=== PATIENT | male | born 1955 | race Caucasian/White ===

== ENCOUNTER 2022-08-29 11:00 | Outpatient (CLI) | payer MEDICARE, SELFPAY ==
--- NOTE | 2022-08-29 11:30 | ECG_ITS ---
Measurements Intervals [place] Rate: 59 P: 67 DE: 173 QRS: 48 QRSD: 89 T: 53 QT: 411 QTc: 407 Interpretive Statements SINUS BRADYCARDIA VENTRICULAR PREMATURE COMPLEX EARLY PRECORDIAL R/S TRANSITION BORDERLINE ECG NO PREVIOUS ECG AVAILABLE FOR COMPARISON Electronically Signed On 08-29-2022 11:48:29 PACKAGING MATERIALS INSPECTOR by Pio Smith D.O.
[2022-08-29 11:36] LABS: Add Urine Microscopic? NO; Appearance Urine Clear (Clear); Bilirubin Urine Negative (Negative); Blood Urine Negative (Negative); Color Urine Yellow (Yellow); Glucose Urine UA Negative (Negative); Ketones Urine Negative (Negative); Leukocyte Esterase Ur Negative LEU/UL (Negative); Nitrate Urine Negative (Negative); Protein Urine Negative (Negative); Urobilinogen Urine 0.2 mg/dL (<2.0); pH Urine 7.5 (5.0-9.0)
[2022-08-29 11:36] LABS: Alanine Aminotransferase 28 U/L (6-50); Albumin Level 4.4 g/dL (3.5-5.1); Alkaline Phosphatase 98 U/L (38-126); Anion Gap 9 mmol/L (8-16); Aspartate Amino Transferase 23 U/L (17-59); Blood Urea Nitrogen 15 mg/dL (9-20); Calcium 8.7 mg/dL (8.4-10.2); Carbon Dioxide 26 mmol/L (22-30); Chloride 104 mmol/L (98-107); Estimated Glomerular Filt Rate > 60; Glucose 104 mg/dL (65-110); Sodium 139 mmol/L (137-145)
[2022-08-29 11:38] LABS: Basophils Absolute Auto 0.1 K/mm3 (0.0-0.1); Basophils Percent Auto 0.8 % (0.2-1.2); Eosinophils Absolute Auto 0.1 K/mm3 (0-0.3); Eosinophils Percent Auto 0.9 % (0-4.4); Hematocrit 45.3 % (42.0-52.0); Hemoglobin 14.7 g/dL (14.0-18.0); Immature Granulocyte Absolute 0.02 K/mm3 (0.00-0.031); Immature Granulocyte Percent A 0.3 % (0-0.5); Lymphocytes Absolute Auto 1.52 K/mm3 (0.9-3.2); Lymphocytes Percent Auto 23.5 % (18.3-44.2); Mean Corpuscular HGB Conc 32.5 g/dl (32-36); Mean Corpuscular Hemoglobin 30.6 pg (26-34); Mean Corpuscular Volume 94.4 fl (80-100); Mean Platelet Volume 9.7 fl (7.4-10.4); Monocytes Absolute Auto 0.5 K/mm3 (0.1-0.6); Monocytes Percent Auto 8.3 % (2.6-8.5); Neutrophils Absolute Auto 4.3 K/mm3 (1.3-6.7); Neutrophils Percent Auto 66.2 % (45.5-73.1); Platelet Count Result 232 k/mm3 (150-375); Red Cell Distribution Width 14.1 % (11.5-14.5); White Blood Count 6.5 K/mm3 (4.5-10.0)
[2022-08-29 12:10] LABS: Prothrombin Time 12.4 Seconds (11.1-14.7)
[2022-08-29 12:11] LABS: Partial Thromboplastin Time 26.2 SECONDS (22.3-36.8)
== END 2022-08-29 11:01 | disposition home or self-care (01) ==
PROVIDERS: Visit Provider Neurological Surgery
DX: Z01.818 Encounter for other preprocedural examination (principal); M47.812 Spondylosis without myelopathy or radiculopathy, cervical region; R00.1 Bradycardia, unspecified
CPT/HCPCS: 36415; 80053; 81003; 85025; 85610; 85730; 86850; 86900; 86901; 93005

== ENCOUNTER 2022-10-30 09:23 | Outpatient (CLI) | payer MEDICARE, SELFPAY | END 2022-10-30 09:24 | disposition home or self-care (01) | PROVIDERS: Visit Provider Neurological Surgery | DX: Z01.818 Encounter for other preprocedural examination (principal) | CPT/HCPCS: 36415; 86850; 86900; 86901 ==

== ENCOUNTER 2022-11-08 00:45 | Day surgery (SDC) | payer MEDICARE, SELFPAY ==
[2022-08-31 09:35] VITALS: BMI 39.5
--- NOTE | 2022-08-31 10:00 | PC.NURSE ---
Report to the Outpatient Waiting Room, entrance under the green pavilion located off [facility], at time __6:30AM on date _09/04/22 . Planned Procedure Time: __8:30AM . Time changes happen often and if your time is changed the preop area will call you the afternoon before. - You and your visitor will be asked to self-screen and do not enter if you have any COVID symptoms. - Only one visitor is requested with a max of two and NO children visitors are allowed at this time. - The patient visitor may be requested to leave or wait in car when not with patient due to distancing restrictions. - A mask is optional within the hospital. Patients may have clear liquids (water, carbonated beverages, clear teas, apple juice) until 3 hours prior to surgery with a maximum of 20 ounces. - No food from midnight until time of surgery Take the following medications with a SIP of water the morning of surgery: __METOPROLOL, GABAPENTIN, HYDROCODONE, SERTRALINE Medications to discontinue per physician ____HOLD ALL VITAMINS/SUPPLEMENTS 7 DAYS PRE-OP PER DR VERDUZCO (PER PATIENT)___ Date to take last dose 08/28/22 Please no make-up, nail portuguese, hairspray, perfume, deodorant, or body powder the day of surgery. No jewelry (including any body piercings) or valuables the day of surgery, leave them at home. Please take a shower or bath the night before, or the morning of, surgery with an antibacterial soap. Wear comfortable, loose fitting clothing. Children are encouraged to wear pajamas. - Jewelry must be removed prior to entering the operating room. Rings and piercings that are not removed may be cut off. - The hospital will not accept responsibility for valuables. - Please leave all valuables, including medications, at home the day of surgery. If you are going home after surgery, a licensed retail delivery driver must drive you home. - NO public transportation without another adult if you receive anesthesia. - We recommend that an adult stay with you for 24 hours following discharge. - We also recommend that you do not drive, make important decision, drink alcoholic beverages, or take any drugs that were not prescribed by your health care provider for at least 24 hours after your discharge time. Follow any additional instructions given to you from your surgeon. If you or anyone in your household have experienced Covid symptoms in the past week, please notify your surgeon or the nurse liaison at the phone number below for possible testing. Telephone instructions given to __PATIENT and asked if any additional questions and then verbalized understanding. Patient advised to call surgeon office or pre surgery nurse liaison [phone] if any additional questions.
[2022-11-01 16:11] VITALS: BMI 39.5
--- NOTE | 2022-11-01 16:19 | PC.NURSE ---
Report to the Outpatient Waiting Room, entrance under the green pavilion located off [facility], at time __6:00AM on date __11/08/22 . Planned Procedure Time: ___8:00AM . Time changes happen often and if your time is changed the preop area will call you the afternoon before. - You and your visitor will be asked to self-screen and do not enter if you have any COVID symptoms. - Only one visitor is requested with a max of two and NO children visitors are allowed at this time. - The patient visitor may be requested to leave or wait in car when not with patient due to distancing restrictions. - A mask is optional within the hospital at this time. Patients may have clear liquids (water, carbonated beverages, clear teas, apple juice) until 3 hours prior to surgery with a maximum of 20 ounces. - No food from midnight until time of surgery Take the following medications with a SIP of water the morning of surgery: ____METOPROLOL, GABAPENTIN, HYDROCODONE, SERTRALINE DO NOT STOP ANY OF YOUR OTHER PRESCRIPTION MEDICATIONS PRIOR TO SURGERY ?EXCEPT THE FOLLOWING Medications to discontinue per physician ___HOLD ALL VITAMINS/SUPPLEMENTS 7 DAYS PRE- OP PER DR VERDUZCO(PER PATIENT) Date to take last dose 11/01/22 Please no make-up, nail egyptian, hairspray, perfume, deodorant, or body powder the day of surgery. No jewelry (including any body piercings) or valuables the day of surgery, leave them at home. Please take a shower or bath the night before, or the morning of, surgery with an antibacterial soap. Wear comfortable, loose fitting clothing. Children are encouraged to wear pajamas. - Jewelry must be removed prior to entering the operating room. Rings and piercings that are not removed may be cut off. - The hospital will not accept responsibility for valuables. - Please leave all valuables, including medications, at home the day of surgery. If you are going home after surgery, a licensed newspaper delivery driver must drive you home. - NO public transportation without another adult if you receive anesthesia. - We recommend that an adult stay with you for 24 hours following discharge. - We also recommend that you do not drive, make important decision, drink alcoholic beverages, or take any drugs that were not prescribed by your health care provider for at least 24 hours after your discharge time. Follow any additional instructions given to you from your surgeon. If you or anyone in your household have experienced Covid symptoms in the past week, please notify your surgeon or the nurse liaison at the phone number below for possible testing. Telephone instructions given to __PATIENT and asked if any additional questions and then verbalized understanding. Patient advised to call surgeon office or pre surgery nurse liaison [phone] if any additional questions.
[2022-11-08] VITALS (10 sets, daily range): BP systolic 122–161; BP diastolic 66–108; PULSE 64–87; RESP 15–28; TEMP 36.3–36.8; O2SAT 93–95
--- NOTE | ~2022-11-08 | XR_ITS ---
EXAMINATION: XR fluoroscopy no charge DATE: 11/08/2022 11:01 INDICATION: Cervical spondylosis. TECHNIQUE: 2 lateral intraoperative fluoroscopic views of the cervical spine were obtained. I was not present. Fluoroscopy exposure time was 5 seconds. COMPARISON: None. FINDINGS: There are changes of anterior fusion procedure at C4-C5 and C5-C6 with anterior plate and s crews. IMPRESSION: 1. Anterior fusion procedure at C4-C5 and C5-C6. Reviewed, dictated and finalized at location A.
[2022-11-08] MEDS: LACTATED RINGERS 1,000 ML 30 ML IV CONT ×2 (06:40→11:04)
[2022-11-08 07:10] LABS: Anion Gap 9 mmol/L (8-16); Blood Urea Nitrogen 21 mg/dL (9-20); Calcium 8.6 mg/dL (8.4-10.2); Carbon Dioxide 26 mmol/L (22-30); Chloride 103 mmol/L (98-107); Estimated CRCL calculation 79 ml/min; Estimated Glomerular Filt Rate > 60; Glucose 125 mg/dL (65-110); Potassium 3.4 mmol/L (3.4-5.0); Sodium 138 mmol/L (137-145)
--- NOTE | 2022-11-08 07:36 | WPDANESEPPF ---
Anes - Initial Pre Proc Eval Procedure: Operation Date: 11/08/22 08:30 Proposed Procedures p C4-5, C5-6 Anterior Cervical Discectomy and Fusion - James Shane MD Date/Time: 11/08/22 07:36 Surgeon: James Shane MD Pre Op Diagnosis: c4-5,c5-6 spondylosis Patient Data Age: 67 Gender: M Height: 1.73 m Weight: 115.7 kg Last Vital Signs Temp 36.8 C 11/08/22 07:26 Pulse 64 11/08/22 07:26 Resp 18 11/08/22 07:26 BP 122/82 11/08/22 07:26 Pulse Ox 94 11/08/22 07:26 O2 Del Method Room Air 11/08/22 07:26 Allergies Allergy/AdvReac Type Severity Reaction Status Date / Time bee venom protein (honey bee) Allergy Mild Anaphylactic Verified 11/08/22 07:03 Shock Home Medications Medication Instructions Recorded Confirmed Type atorvastatin 40 mg tablet 40 mg PO HS 06/04/22 11/08/22 History cannabidiol 100 mg/mL oral solution 5 mg PO QID 06/04/22 11/08/22 History coenzyme Q10 200 mg/gram oral 200 mg PO DAILY 06/04/22 11/08/22 History powder (H2Q CoQ10) docosahexaenoic acid (dha)-epa 120 1 cap PO DAILY 06/04/22 11/08/22 History mg-180 mg capsule (Fish Oil) epinephrine 0.1 mg/0.1 mL 0.1 mg subcut PRN PRN Anaphylaxis 06/04/22 11/01/22 History injection, auto-injector fexofenadine 180 mg tablet 180 mg PO DAILY 06/04/22 11/08/22 History gabapentin 300 mg capsule 900 mg PO TID 06/04/22 11/08/22 History hydrochlorothiazide 25 mg tablet 25 mg PO QAM 06/04/22 11/08/22 History metoprolol succinate 25 mg 25 mg PO DAILY 06/04/22 11/08/22 History tablet,extended release 24 hr pantoprazole 40 mg tablet,delayed 40 mg PO QAM 06/04/22 11/08/22 History release docusate sodium 50 mg capsule 50 mg PO DAILY 08/31/22 11/08/22 History fluticasone propionate 50 2 spray intranasal DAILY 08/31/22 11/08/22 History mcg/actuation nasal spray,suspension hydrocodone 10 mg-acetaminophen 1 tablet PO Q6-8H 08/31/22 11/08/22 History 325 mg tablet lisinopril 20 mg tablet 20 mg PO QAM 08/31/22 11/08/22 History edztjyzq-cjrm-jkkwd acid 400 1 tablet PO DAILY 08/31/22 11/08/22 History mcg-lycopene 600 mcg-ginkgo 120 mg tablet sertraline 50 mg tablet 50 mg PO QAM 08/31/22 11/08/22 History Laboratory Tests 11/08/22 06:36 Sodium 138 mmol/L mmol/L (137-145) Potassium 3.4 mmol/L mmol/L (3.4-5.0) Chloride 103 mmol/L mmol/L (98-107) Carbon Dioxide 26 mmol/L mmol/L (22-30) Anion Gap 9 mmol/L mmol/L (8-16) BUN 21 mg/dL H mg/dL (9-20) Creatinine 1.00 mg/dL mg/dL (0.7-1.3) Estim Creat Clear Calc 79 ml/min ml/min Estimated GFR > 60 (59 - ) Glucose 125 mg/dL H mg/dL (65-110) Calcium 8.6 mg/dL mg/dL (8.4-10.2) Patient hx anesthesia problems: none Family hx anesthesia problems: none Results Review: All pre-operative results and documents have been reviewed as part of the pre-operative evaluation. FORMERLY [facility], [facility] Past Medical History Medical History Allergies Anxiety Arthritis Surgical History Surgical History History of lumbar fusion Family History Family History Other Breast cancer Heart disease Social History Social History Smoking status: Never smoker Alcohol intake: former Alcohol use details: 9 YEARS WITHOUT ALCOHOL Substance use: never Substance use type: marijuana Other substance usage details: MARIJUANA EBIBLES 4 TIMES/DAY Living arrangements: with family Additional living arrangements comments: Spiritual care concerns: No Anes - Eval Final PreProcedure Day of Procedure 11/08/22 07:36 Patient weight: obese Heart: regular rate and rhythm Lungs: clear to auscultation Airway: Mallampati scale class II Neurological: alert and oriented Last oral i
--- NOTE | 2022-11-08 08:20 | PM.IMHP ---
H&P: HPI History of Present Illness Date/Time: 11/08/22 08:20 Chief Complaint: Mr. Mejia is a 67-year-old gentleman with neck and arm pain related to spondylosis and foraminal stenosis with disc herniation at C4-5 and C5-6. He presents now for a C4-5 and C5-6 anterior cervical diskectomy and fusion. He has not changed appreciably since we last saw him. He is not having any specific muscle group weakness or dermatomal numbness. He is not having any bowel or bladder difficulty. Review of Systems Review of Systems: Patient denies shortness of breath, cough, fever, chills, nausea, vomiting, weight loss, weight gain, chest pain, dysuria. He has neck and arm pain as above. His review of systems is otherwise negative on 12 systems except as noted elsewhere. FORMERLY [facility] Past Medical History Medical History Allergies Anxiety Arthritis Surgical History Surgical History History of lumbar fusion Family History Family History Other Breast cancer Heart disease Social History Social History Smoking status: Never smoker Alcohol intake: former Alcohol use details: 9 YEARS WITHOUT ALCOHOL Substance use: never Substance use type: marijuana Other substance usage details: MARIJUANA EBIBLES 4 TIMES/DAY Living arrangements: with family Additional living arrangements comments: Spiritual care concerns: No Meds Home Medications and Allergies Home Medications Medication Instructions Recorded Confirmed Type atorvastatin 40 mg tablet 40 mg PO HS 06/04/22 11/08/22 History cannabidiol 100 mg/mL oral solution 5 mg PO QID 06/04/22 11/08/22 History coenzyme Q10 200 mg/gram oral 200 mg PO DAILY 06/04/22 11/08/22 History powder (H2Q CoQ10) docosahexaenoic acid (dha)-epa 120 1 cap PO DAILY 06/04/22 11/08/22 History mg-180 mg capsule (Fish Oil) epinephrine 0.1 mg/0.1 mL 0.1 mg subcut PRN PRN Anaphylaxis 06/04/22 11/01/22 History injection, auto-injector fexofenadine 180 mg tablet 180 mg PO DAILY 06/04/22 11/08/22 History gabapentin 300 mg capsule 900 mg PO TID 06/04/22 11/08/22 History hydrochlorothiazide 25 mg tablet 25 mg PO QAM 06/04/22 11/08/22 History metoprolol succinate 25 mg 25 mg PO DAILY 06/04/22 11/08/22 History tablet,extended release 24 hr pantoprazole 40 mg tablet,delayed 40 mg PO QAM 06/04/22 11/08/22 History release docusate sodium 50 mg capsule 50 mg PO DAILY 08/31/22 11/08/22 History fluticasone propionate 50 2 spray intranasal DAILY 08/31/22 11/08/22 History mcg/actuation nasal spray,suspension hydrocodone 10 mg-acetaminophen 1 tablet PO Q6-8H 08/31/22 11/08/22 History 325 mg tablet lisinopril 20 mg tablet 20 mg PO QA 08/31/22 11/08/22 History zeufcklz-wycj-smpuk acid 400 1 tablet PO DAILY 08/31/22 11/08/22 History mcg-lycopene 600 mcg-ginkgo 120 mg tablet sertraline 50 mg tablet 50 mg PO QAM 08/31/22 11/08/22 History Allergies Allergy/AdvReac Type Severity Reaction Status Date / Time bee venom protein (honey bee) Allergy Mild Anaphylactic Verified 11/08/22 07:03 Shock Vital Signs Vital Signs - 24 hr 11/08/22 07:26 Temperature 98.3 F Pulse Rate 64 Respiratory Rate 18 Blood Pressure 122/82 Pulse Oximetry 94 Oxygen Delivery Room Air Exam Narrative: Strength is 5/5 in all muscle groups of the bilateral upper extremities. Sensation is intact light touch throughout the upper extremities. Patient is breathing in a nonlabored fashion and can complete sentences without difficulty. Regular rate and rhythm H&P: Results Labs Labs: [facility] 11/08/22 06:36 Sodium 138 Potassium 3.4 Chloride 103 Carbon Dioxide 26 BUN 21 H Creatinine 1.00 Glucose 125 H Calcium 8.6 Assessment and P
--- NOTE | 2022-11-08 08:23 | WPDHPUPDATE1 ---
History and Physical Update Update Date/Time: 11/08/22 08:23 History and Physical has been reviewed, including an updated exam of the patient. There are NO changes in the patient's condition. Risks, benefits, and alternatives have been discussed and questions answered. Patient agrees to proceed with procedure.
[2022-11-08] MEDS: ceFAZolin 2 GM/D5W 50 ML 2 GM/50 ML BAG IVPB (08:50)
[2022-11-08] MEDS: LIDO 1%/EPINEPHRINE 1:100,000 20 ML VIAL 10 ML INFILTRATE (09:16)
--- NOTE | 2022-11-08 10:49 | W.PM.PROC2 ---
Procedure Note - Detailed Date of Procedure 11/08/22 Pre-op Diagnosis c4-5,c5-6 spondylosis, neural foraminal stenosis Post-op Diagnosis Same Procedure Performed C4-5 and C5-6 complete diskectomy and bilateral neural foraminotomy, C4-5 and C5-6 interbody arthrodesis, C4-5 and C5-6 anterior cervical plating with locking plate and screws Surgeon James Shane MD Dobby [employer]oom [employer] [place] Anesthesia General Description of Procedure Patient was brought to the operating room in the supine position, was sedated, intubated and placed under general anesthesia in routine fashion. The area on the right side of the neck was examined, marked for incision, prepped and draped in routine sterile fashion. Incision was marked from the midline over the medial aspect of sternocleidomastoid muscle 3 fingerbreadths above the sternal notch. This area was injected with 0.5% lidocaine [id number] epinephrine. Intravenous antibiotics given prior to incision. Incision was made with a 10 blade scalpel down to the platysma muscle. The skin was undermined and the platysma muscle was divided longitudinally with its fibers using Metzenbaum scissors. A plane was then dissected medial to the sternocleidomastoid muscle down to the anterior aspect of spine using the finger and Metzenbaum scissors. A verifying x-rays obtained to verify the level of operation. At the C4-5 and C5-6 level longus colli muscle was dissected free of the anterior aspect of the spine in the subperiosteal plane using Bovie cautery. A Shadow Line retractor system was placed. Cameron pins were placed into C4 and C6 and distraction placed over both disc spaces simultaneously. Under microscopy the disc spaces were entered using a 15 blade scalpel. Curved curettes and a pituitary rongeur were used to remove as much cartilaginous endplate disc material as possible down to the annulus and ligament posteriorly. A Midas Jensen drill was used to bur down the endplates to bleeding cortical flat surfaces, begin a bony foraminotomy bilaterally and to remove the anterior osteophyte. A nerve hook and curved curette were used to come through the annulus and ligament. A 2. Kerrison punch was used to remove annulus, ligament and posterior osteophyte and complete a bony foraminotomy bilaterally. This was confirmed by placing a nerve hook into each foramen to confirm microdecompression. Disc spaces were then sized to 5 mm peek interbody devices were chosen and filled with a mixture of local autograft bone and I factor. These were then tamped into the interspace to 1-2 mm countersink. The Dane pins were removed. An anterior cervical plate was chosen placed in position and secured using 614 x 4 mm anterior screws advanced into the locking mechanism the plate to hand tightness. The locking mechanism was engaged at each screw. A verifying x-rays obtained to verify good position of the instrumentation which was confirmed. The wound was copiously irrigated with bacitracin irrigation at all bleeding stopped with bipolar and Bovie cautery and Gelfoam thrombin powder. The wound was then closed in layered fashion with 3-0 Vicryl interrupted sutures in the platysma muscle and dermis. The skin was closed with a running 4-0 Monocryl subcuticular stitch and dressed with Dermabond. The The patient was allowed to come out from general anesthesia in the operating room and was taken to the recovery room in stable condition. There were no immediate complications of this operation. All counts were reported correct at the end of the case. Blood loss was 50 cc. The patient was neurologically at his baseline postoperatively. Implants Peek interbody devices, titanium anterior cervical plate and screws Estimated Blood Loss 50 IV Fluids 1,500 Complications None Condition Stable Disposition PACU [facility] Billing Surgery - Charge Forward: Surgery Billing
[2022-11-08] MEDS: fentaNYL CITRATE INJ (*CRX) 100 MCG/2 ML VIAL 25 MCG IV PUSH ×8 (11:34→12:05)
[2022-11-08] MEDS: ONDANSETRON INJ 4 MG/2 ML VIAL IV PUSH (11:37)
[2022-11-08] MEDS: oxyCODONE HCL (*CRX) 5 MG TAB IR PO ×2 (12:22→12:59)
[2022-11-08] MEDS: PROPARACAINE HCL 0.5% 15 ML OPHTH SOLN 1 DROP EACH EYE (12:59)
[2022-11-08] MEDS: ARTIFICIAL TEARS OPHTH SOLN 15 ML BOTTLE 1 DROP EACH EYE (13:00)
--- NOTE | 2022-11-08 13:21 | SUR.PHASEII ---
1255 - pt c/o rt eye pain. redness noted. dr. lindsey called and orders received. 1300 - eye drops applied. pt verbalizes immediate relief
== END 2022-11-08 13:45 | disposition home or self-care (01) ==
PROVIDERS: Anesthesiology; Visit Provider Neurological Surgery
PROC: (CPT 63030; principal; 2022-11-08 08:30)
DX: M47.812 Spondylosis without myelopathy or radiculopathy, cervical region (principal); M48.02 Spinal stenosis, cervical region; F41.9 Anxiety disorder, unspecified; F12.90 Cannabis use, unspecified, uncomplicated; E66.9 Obesity, unspecified; Z68.38 Body mass index [BMI] 38.0-38.9, adult
CPT/HCPCS: 22551; 22552; 22853 ×2; 20936; 36415; 80048; 86850; 86900; 86901; 99199; A9270; C1713; J0330; J0690; J1100; J1170; J2250; J2405; J2704; J3010; J7120

== ENCOUNTER 2024-03-17 06:54 | Outpatient (CLI) | payer MEDICARE, SELFPAY ==
--- NOTE | 2024-03-13 08:07 | PC.NURSE ---
Pre Radiology instructions Report to the outpatient [facility] on date _[id number]_ at time _0700_ for procedure Time: _0900_ YOU MAY BE MONITORED AT HOSPITAL FOR UP TO 4 HOURS AFTER YOUR PROCEDURE. A visitor will be allowed to accompany the patient into the hospital. You and your visitor will be asked to self-screen and do not enter if you have any COVID symptoms. A mask is OPTIONAL within the hospital. Patients are to have no food or drink 6 hours prior to procedure time Driving will be restricted after the procedure, you must have a person to drive you home. Labs will be drawn in preop area and once reviewed, you will be taken to radiology area for procedure. When the procedure is completed, you will be taken to outpatient where you will be monitored for several hours. You may have one visitor in this area. Other than holding anti-coagulants, patient may take other medication(s) as scheduled. Prior to your appointment date patients are instructed to hold anti-coagulants after discussing with ordering provider to stop. If unable to discontinue anti-coagulants please notify radiologist. ? No aspirin or warfarin (Coumadin) for 7 days prior to the procedure. ? No clopidogrel (Plavix), ticagrelor (Brilinta), prasugrel (Effient) or dabigatran (Pradaxa) for 5 days prior to the procedure. ? No rivaroxaban (Xarelto), apixaban (Eliquis), dipyridamole (Aggrenox or Persantine) or cilostazol (Pletal) for 2 days prior to the procedure. Medications to discontinue per physician: __Aspirin Date to take last dose: ___Patient had been told by radiology to stop this 7 days before proceedure. Patient took last dose 03-12-2024, 5 days before porceedure. Radiology notified. Please leave all valuables, including medications, at home the day of procedure. The hospital will not accept responsibility for valuables. Wear comfortable, loose fitting clothing.? Follow any additional instructions given to you from ordering provider. Telephone instructions given to __Len___and asked if any additional questions and then verbalized understanding. Patient advised to call scheduling provider office or registration scheduling [phone] if any additional questions.
[2024-03-13 08:16] VITALS: BMI 38.0
[2024-03-17] VITALS (8 sets, daily range): BP systolic 125–147; BP diastolic 59–78; PULSE 44–56; RESP 18–20; TEMP 36.8; O2SAT 96; BMI 39.2
--- NOTE | ~2024-03-17 | XR_ITS ---
EXAMINATION: CT lumbar spine w con, XR myelogram spine lumbosacral DATE: 03/17/2024 10:03 INDICATION: Lumbar spinal stenosis TECHNIQUE: Informed consent was obtained from the patient. Risks and benefits including bleeding, i nfection, spinal headache and nerve root injury were discussed with the patient. The patient agreed to proceed. Time out procedure was performed. [employer] radiograph was obtained. An entry site was cho sen at the level of an L3 laminectomy. A central approach was used. Standard sterile prep was done w ith Betadine. Entry site was infiltrated with 5 cc 1% lidocaine. A 5 22G spinal needle was then in serted into the spinal canal with intrathecal position confirmed by lateral radiograph and spontaneou s reflux of clear CSF fluid. 17 mL Omnipaque 180 was then injected into the thecal sac with intermitt ent fluoroscopic observation. The needle was removed and a sterile dressing was applied. Frontal and left and right oblique fluoroscopic images were then acquired. Lateral fluoroscopic image was unable to be obtained due to patient body habitus. The patient was then transferred to CT scan f or spiral CT of the lumbar spine. Following this patient was returned to the floor. There are no im mediate complications. Coronal and sagittal reformatted images of the lumbar spine CT were also revi ewed. FINDINGS: [employer] fluoroscopy demonstrated change of prior L2 and L3 laminectomies with instrumented L2-L4 punchboard stuffer ior spinal fusion with bilateral vertical cailin and pedicle screw fixation. There is also anterior spin al fusion with interbody bone graft cages at L2-L3 and L3-L4 and with both bone graft cages and anter ior plate and screw fixation at L4-L5. There is additional anterior fusion across the margins of the severely narrowed L5-S1 disc space without instrumentation. There is also fusion without instrumentat ion across the bilateral L4-L5 facet joints. 2 mm retrolisthesis T10 on T11. 5 mm retrolisthesis L1 on L2. Vertebral body heights are normal. No f ractures. Large hemangioma at the right side of L1. Moderate to severe disc height loss with vacuum p henomena and degenerative endplate changes at T10-T11, T11-T12 and L1-L2. Mild disc height loss at T1 2-L1. Spinal stimulator with leads extending into the central canal posterior to the thecal sac at th e level of T9 extends cephalad beyond the cephalad margin of the field of imaging. The fluoroscopic images demonstrate the spinal needle at the level of L3. On the CT images there is e xtravasation of a small amount of contrast along the needle tract which extends to the subcutaneous t issues through the posterior paraspinal musculature and scarring at the sites of the prior laminectom ies. There is heterogeneous distribution of the contrast within the intrathecal sac with significantl y higher contrast density seen in the nondependent portion of the cecal plaque separate from the less dense contrast at the majority of the thecal sac by an otherwise indiscernible smooth intervening se ptation. Aside from at the site of injection there is no evident extradural extension of contrast int o the epidural space. The following disc levels are specifically discussed: T9-T10: The disc does not extend beyond the endplate margin. There is moderate left and severe right neural foraminal stenosis. There is mild bilateral neural foraminal stenosis. There is no central can al stenosis. T10-T11: Disc is mildly bulging. There is severe bilateral facet osteoarthritis. There is moderate to severe bilateral neural foraminal stenosis. There is mild to moderate central canal stenosis. T11-T12: Disc is bulging. There is severe bilateral facet joint osteoarthritis. There is mild to mode rate left and moderate right neural foraminal stenosis. There is mild central canal stenosis. T12-L1: The disc does not extend beyond the endplate margin. There is severe bilateral facet joint os teoarth
[2024-03-17 07:46] LABS: Mean Platelet Volume 10.2 fl (7.4-10.4); Platelet Count Result 199 k/mm3 (150-375)
[2024-03-17 07:53] LABS: INR 0.9; Prothrombin Time 12.6 Seconds (11.1-14.7)
--- NOTE | 2024-03-17 10:40 | SUR.PHASEII ---
1040 - pt requested to take his home dose of [place]. Dr. Paige called and okayed for pt to take medication.
== END 2024-03-17 12:10 | disposition home or self-care (01) ==
PROVIDERS: Referring Provider Neurological Surgery; Visit Provider Radiology Diagnostic Radiology
DX: Z01.818 Encounter for other preprocedural examination (principal); M43.06 Spondylolysis, lumbar region; M43.04 Spondylolysis, thoracic region; M48.061 Spinal stenosis, lumbar region without neurogenic claudication; M47.816 Spondylosis without myelopathy or radiculopathy, lumbar region
CPT/HCPCS: 36415; 62304; 72132; 85049; 85610; Q9965

== ENCOUNTER 2024-06-16 09:48 | Outpatient (CLI) | payer MEDICARE, SELFPAY ==
--- NOTE | 2024-06-16 10:00 | ECG_ITS ---
Test Date: 2024-06-16 10:22:39 Measurements Intervals [place] Rate: 60 P: 88 [place]: 178 QRS: 52 QRSD: 94 T: 44 QT: 400 QTc: 401 Interpretive Statements SINUS RHYTHM No previous ECG available for comparison Electronically Signed On 06-16-2024 11:30:13 CDT by Griffin Joshi M.D.
[2024-06-16 11:09] LABS: Hematocrit 42.9 % (42.0-52.0); Hemoglobin 14.2 g/dL (14.0-18.0); Mean Corpuscular HGB Conc 33.1 g/dl (32-36); Mean Corpuscular Hemoglobin 31.9 pg (26-34); Mean Corpuscular Volume 96.4 fl (80-100); Mean Platelet Volume 10.1 fl (7.4-10.4); Platelet Count Result 229 k/mm3 (150-375); Red Blood Count 4.45 M/mm3 (4.6-6.20); Red Cell Distribution Width 13.8 % (11.5-14.5); White Blood Count 4.8 K/mm3 (4.5-10.0)
[2024-06-16 11:10] LABS: Add Urine Microscopic? NO; Appearance Urine Clear (Clear); Bilirubin Urine Negative (Negative); Blood Urine Negative (Negative); Color Urine Yellow (Yellow); Glucose Urine UA Negative (Negative); Ketones Urine Negative (Negative); Leukocyte Esterase Ur Negative LEU/UL (Negative); Nitrate Urine Negative (Negative); Protein Urine Negative (Negative); Specific Grav Ur 1.019 (1.001-1.035); Urobilinogen Urine 0.2 mg/dL (<2.0); pH Urine 5.5 (5.0-9.0)
[2024-06-16 11:21] LABS: Anion Gap 9 mmol/L (4-12); Blood Urea Nitrogen 17 mg/dL (9-20); Calcium 9.2 mg/dL (8.4-10.2); Carbon Dioxide 29 mmol/L (22-30); Chloride 101 mmol/L (98-107); Estimated Glomerular Filt Rate > 60; Glucose 104 mg/dL (65-110); Potassium 3.5 mmol/L (3.4-5.0); Sodium 139 mmol/L (137-145)
[2024-06-16 11:34] LABS: INR 0.9; Prothrombin Time 12.8 Seconds (11.1-14.7)
[2024-06-16 11:35] LABS: Partial Thromboplastin Time 26.1 Seconds (22.3-36.8)
== END 2024-06-16 09:49 | disposition home or self-care (01) ==
PROVIDERS: Visit Provider Neurological Surgery
DX: Z01.818 Encounter for other preprocedural examination (principal); M47.816 Spondylosis without myelopathy or radiculopathy, lumbar region; I10 Essential (primary) hypertension
CPT/HCPCS: 36415; 80048; 81003; 85027; 85610; 85730; 86850; 86900; 86901; 93005

== ENCOUNTER 2024-07-21 11:16 | Outpatient (CLI) | payer MEDICARE, SELFPAY ==
--- NOTE | ~2024-07-21 | XR_ITS ---
3 VIEWS LUMBAR SPINE Ordering provider: James Shane MD History: . M47.816 - Spondylosis without myelopathy or radiculopathy... . Comparison: None. FINDINGS: VERTEBRAL BODIES:Postoperative changes seen in all lumbar vertebrae. No visible fracture or subluxat ion. DISK SPACES: Multilevel disc spacers. 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 Multileve l facet joint disease. SOFT TISSUES: Aortic atherosclerotic changes. Spinal stimulator is seen posteriorly. IMPRESSION: No acute osseous abnormality lumbar spine. Postoperative changes in multiple levels. Reviewed, dictated and finalized at location A. [facility]
== END 2024-07-21 11:17 | disposition home or self-care (01) ==
PROVIDERS: Visit Provider Neurological Surgery
DX: M47.816 Spondylosis without myelopathy or radiculopathy, lumbar region (principal); M43.10 Spondylolisthesis, site unspecified
CPT/HCPCS: 72100